=== PATIENT | male | born 1965 ===

== ENCOUNTER → 2023-04-09 | Outpatient (CLI) | LOC: LABNPT 13:31 | PROVIDERS: ATTEND Internal Medicine Infectious Disease | DX: T14.8XXA Other injury of unspecified body region, initial encounter (principal); L08.9 Local infection of the skin and subcutaneous tissue, unspecified; B95.2 Enterococcus as the cause of diseases classified elsewhere | CPT/HCPCS: 80202 ==

== ENCOUNTER → 2023-04-13 | Outpatient (CLI) ==
[2023-04-13 08:47] LABS: BASOPHILS % (AUTO) 1 % (0-10); EOSINOPHILS # (AUTO) 0.2 10^3/uL (0.0-0.3); EOSINOPHILS % (AUTO) 3 % (0-10); HEMATOCRIT 37 % (40-54); HEMOGLOBIN 11.2 g/dL (13.3-17.7); LYMPHOCYTES # (AUTO) 2.2 10^3/uL (1.0-4.0); LYMPHOCYTES % (AUTO) 33 % (12-44); MEAN CORPUSCULAR HEMOGLOBIN 25 pg (25-34); MEAN CORPUSCULAR HGB CONC 31 g/dL (32-36); MEAN CORPUSCULAR VOLUME 82 fL (80-99); MEAN PLATELET VOLUME 11.2 fL (9.0-12.2); MONOCYTES # (AUTO) 0.4 10^3/uL (0.0-1.0); MONOCYTES % (AUTO) 6 % (0-12); NEUTROPHILS # (AUTO) 3.7 10^3/uL (1.8-7.8); NEUTROPHILS % (AUTO) 57 % (42-75); PLATELET COUNT 260 10^3/uL (130-400); WHITE BLOOD COUNT 6.5 10^3/uL (4.3-11.0)
[2023-04-13 08:53] LABS: ALBUMIN 3.6 GM/DL (3.2-4.5); POTASSIUM 3.7 MMOL/L (3.6-5.0)
[2023-04-13 08:54] LABS: CALCIUM 8.8 MG/DL (8.5-10.1)
[2023-04-13 08:55] LABS: TOTAL PROTEIN 6.9 GM/DL (6.4-8.2)
[2023-04-13 08:57] LABS: BILIRUBIN,TOTAL 0.4 MG/DL (0.1-1.0)
[2023-04-13 08:59] LABS: CREATININE SERUM 1.06 MG/DL (0.60-1.30)
[2023-04-13 09:08] LABS: VANCOMYCIN,TROUGH 9.4 UG/ML (10.0-20.0)
[2023-04-13 09:16] LABS: EOSINOPHILS % (MANUAL) 3 %; LYMPHOCYTES % (MANUAL) 34 %; MONOCYTES % (MANUAL) 6 %; MYELOCYTES % 1 %; NEUTROPHILS % (MANUAL) 56 %
[2023-04-13 09:17] LABS: ERYTHROCYTE SEDIMENTATION RATE 20 MM/HR (0-30); RBC MORPH NORMAL
== END ==
LOC: LABNPT 08:37
PROVIDERS: ATTEND Internal Medicine Infectious Disease
DX: T14.8XXA Other injury of unspecified body region, initial encounter (principal); L08.9 Local infection of the skin and subcutaneous tissue, unspecified; B95.2 Enterococcus as the cause of diseases classified elsewhere
CPT/HCPCS: 80053; 80202; 85007; 85027; 85652; 86141

== ENCOUNTER → 2023-04-20 | Outpatient (CLI) ==
[2023-04-20 09:31] LABS: BASOPHILS % (AUTO) 1 % (0-10); EOSINOPHILS # (AUTO) 0.2 10^3/uL (0.0-0.3); EOSINOPHILS % (AUTO) 2 % (0-10); HEMATOCRIT 36 % (40-54); HEMOGLOBIN 11.5 g/dL (13.3-17.7); LYMPHOCYTES # (AUTO) 1.5 10^3/uL (1.0-4.0); LYMPHOCYTES % (AUTO) 18 % (12-44); MEAN CORPUSCULAR HEMOGLOBIN 26 pg (25-34); MEAN CORPUSCULAR HGB CONC 32 g/dL (32-36); MEAN CORPUSCULAR VOLUME 81 fL (80-99); MEAN PLATELET VOLUME 11.6 fL (9.0-12.2); MONOCYTES # (AUTO) 0.6 10^3/uL (0.0-1.0); MONOCYTES % (AUTO) 7 % (0-12); NEUTROPHILS # (AUTO) 6.3 10^3/uL (1.8-7.8); NEUTROPHILS % (AUTO) 73 % (42-75); PLATELET COUNT 233 10^3/uL (130-400); WHITE BLOOD COUNT 8.6 10^3/uL (4.3-11.0)
[2023-04-20 09:41] LABS: ALBUMIN 3.9 GM/DL (3.2-4.5); POTASSIUM 3.8 MMOL/L (3.6-5.0)
[2023-04-20 09:43] LABS: CALCIUM 8.8 MG/DL (8.5-10.1)
[2023-04-20 09:44] LABS: TOTAL PROTEIN 6.9 GM/DL (6.4-8.2)
[2023-04-20 09:46] LABS: BILIRUBIN,TOTAL 0.6 MG/DL (0.1-1.0)
[2023-04-20 09:48] LABS: CREATININE SERUM 1.02 MG/DL (0.60-1.30)
[2023-04-20 09:56] LABS: VANCOMYCIN,TROUGH 14.4 UG/ML (10.0-20.0)
[2023-04-20 10:07] LABS: EOSINOPHILS % (MANUAL) 3 %; LYMPHOCYTES % (MANUAL) 13 %; MONOCYTES % (MANUAL) 5 %; NEUTROPHILS % (MANUAL) 79 %; RBC MORPH NORMAL
== END ==
LOC: LABNPT 09:26
PROVIDERS: ATTEND Internal Medicine Infectious Disease
DX: Z29.8 Encounter for other specified prophylactic measures (principal); T14.8XXA Other injury of unspecified body region, initial encounter; L08.9 Local infection of the skin and subcutaneous tissue, unspecified; B95.2 Enterococcus as the cause of diseases classified elsewhere; A49.8 Other bacterial infections of unspecified site
CPT/HCPCS: 80053; 80202; 85007; 85027; 86141

== ENCOUNTER → 2023-04-27 | Outpatient (CLI) ==
[2023-04-27 10:18] LABS: BASOPHILS % (AUTO) 0 % (0-10); EOSINOPHILS # (AUTO) 0.3 10^3/uL (0.0-0.3); EOSINOPHILS % (AUTO) 3 % (0-10); HEMATOCRIT 38 % (40-54); HEMOGLOBIN 12.1 g/dL (13.3-17.7); LYMPHOCYTES # (AUTO) 1.9 10^3/uL (1.0-4.0); LYMPHOCYTES % (AUTO) 22 % (12-44); MEAN CORPUSCULAR HEMOGLOBIN 26 pg (25-34); MEAN CORPUSCULAR HGB CONC 32 g/dL (32-36); MEAN CORPUSCULAR VOLUME 80 fL (80-99); MEAN PLATELET VOLUME 11.3 fL (9.0-12.2); MONOCYTES # (AUTO) 0.5 10^3/uL (0.0-1.0); MONOCYTES % (AUTO) 6 % (0-12); NEUTROPHILS % (AUTO) 68 % (42-75); PLATELET COUNT 238 10^3/uL (130-400); WHITE BLOOD COUNT 8.8 10^3/uL (4.3-11.0)
[2023-04-27 10:36] LABS: BILIRUBIN,TOTAL 0.6 MG/DL (0.1-1.0); CALCIUM 9.3 MG/DL (8.5-10.1); CREATININE SERUM 1.07 MG/DL (0.60-1.30); POTASSIUM 4.2 MMOL/L (3.6-5.0)
[2023-04-27 10:42] LABS: VANCOMYCIN,TROUGH 14.9 UG/ML (10.0-20.0)
[2023-04-27 10:53] LABS: ERYTHROCYTE SEDIMENTATION RATE 20 MM/HR (0-30)
[2023-04-27 10:58] LABS: BAND NEUTROPHILS 0 %; BASOPHILS % (MANUAL) 1 %; EOSINOPHILS % (MANUAL) 3 %; LYMPHOCYTES % (MANUAL) 26 %; MONOCYTES % (MANUAL) 2 %; NEUTROPHILS % (MANUAL) 68 %; RBC MORPH NORMAL
== END ==
LOC: LABNPT 10:12
PROVIDERS: ATTEND Internal Medicine Infectious Disease
DX: T14.8XXA Other injury of unspecified body region, initial encounter (principal); L08.9 Local infection of the skin and subcutaneous tissue, unspecified; B95.2 Enterococcus as the cause of diseases classified elsewhere; E11.621 Type 2 diabetes mellitus with foot ulcer
CPT/HCPCS: 80053; 80202; 85007; 85027; 85652; 86141

== ENCOUNTER → 2023-05-04 | Outpatient (CLI) | payer OTHER ==
[2023-05-04 08:37] LABS: BASOPHILS % (AUTO) 1 % (0-10); EOSINOPHILS # (AUTO) 0.2 10^3/uL (0.0-0.3); EOSINOPHILS % (AUTO) 2 % (0-10); HEMATOCRIT 36 % (40-54); HEMOGLOBIN 11.2 g/dL (13.3-17.7); LYMPHOCYTES # (AUTO) 1.4 10^3/uL (1.0-4.0); LYMPHOCYTES % (AUTO) 21 % (12-44); MEAN CORPUSCULAR HEMOGLOBIN 26 pg (25-34); MEAN CORPUSCULAR HGB CONC 32 g/dL (32-36); MEAN CORPUSCULAR VOLUME 82 fL (80-99); MEAN PLATELET VOLUME 11.6 fL (9.0-12.2); MONOCYTES # (AUTO) 0.5 10^3/uL (0.0-1.0); MONOCYTES % (AUTO) 8 % (0-12); NEUTROPHILS # (AUTO) 4.5 10^3/uL (1.8-7.8); NEUTROPHILS % (AUTO) 68 % (42-75); PLATELET COUNT 191 10^3/uL (130-400); WHITE BLOOD COUNT 6.7 10^3/uL (4.3-11.0)
[2023-05-04 08:59] LABS: BASOPHILS % (MANUAL) 1 %; EOSINOPHILS % (MANUAL) 1 %; LYMPHOCYTES % (MANUAL) 22 %; MONOCYTES % (MANUAL) 8 %; NEUTROPHILS % (MANUAL) 68 %
[2023-05-04 09:01] LABS: ALBUMIN 3.7 GM/DL (3.2-4.5); BILIRUBIN,TOTAL 0.5 MG/DL (0.1-1.0); CREATININE SERUM 1.03 MG/DL (0.60-1.30); ERYTHROCYTE SEDIMENTATION RATE 25 MM/HR (0-30); POTASSIUM 3.8 MMOL/L (3.6-5.0); TOTAL PROTEIN 6.8 GM/DL (6.4-8.2)
[2023-05-04 09:02] LABS: ANISOCYTOSIS SLIGHT
[2023-05-04 09:06] LABS: VANCOMYCIN,TROUGH 17.3 UG/ML (10.0-20.0)
== END ==
LOC: LABNPT 08:31
PROVIDERS: ATTEND Internal Medicine Infectious Disease
DX: T14.8XXA Other injury of unspecified body region, initial encounter (principal); L08.9 Local infection of the skin and subcutaneous tissue, unspecified; B95.2 Enterococcus as the cause of diseases classified elsewhere
CPT/HCPCS: 80053; 80202; 85007; 85027; 85652; 86141